=== PATIENT | male | born 1970 | race Caucasian/White ===

== ENCOUNTER 2022-09-16 08:38 | Emergency (ER) | payer OTHER, MEDICAID, SELFPAY ==
[2022-09-16 08:53] VITALS: O2SAT 97
--- NOTE | 2022-09-16 08:53 | ED.FALL ---
HPI - Fall General Chief Complaint: Fall Stated Complaint: poss broken ribs/hip & neck hurt RT side Time Seen by Provider: 09/16/22 08:48 Source: patient and RN notes reviewed Mode of arrival: Ambulatory Limitations: no limitations History of Present Illness HPI Narrative: This is a 51 year old male with history of osteoarthritis and chronic pain on oxycodone daily. Patient states this morning he was with his girlfriend who has seizure disorder. He states that she is started have seizure activity and fell he caught her and they fell together with her landing on top of him and sort of on his right hip and chest. Patient states she was about 130 lb. They landed on [place]. He states that he is had right hip, right rib pain and some lateral neck pain since then. He denies any loss of consciousness. He thinks he did hit his head but describes it as not being very hard. Patient has been ambulating and brought himself. Patient states no bruising or skin changes he appreciates. He states he did break his ribs on the right side several years ago they have since healed and a similar scenario but has increased pain today. He states he has chronic joint pain in his right hip normally as well as his chest and shoulders that he has daily but is worse after his fall. He denies any shortness of breath, no nausea or vomiting, no dizziness or lightheadedness, no other GI or urinary symptoms. No new numbness, tingling or weakness. Patient states oxycodone is his only daily medication. Related Data Allergies Allergy/AdvReac Type Severity Reaction Status Date / Time acetaminophen [From Tylenol] Allergy Unknown Rash Verified 09/16/22 09:42 codeine Allergy Unknown ITCHING Verified 09/16/22 09:42 Iodinated Contrast Media Allergy Unknown Verified 09/16/22 09:42 iodine Allergy Unknown Verified 09/16/22 09:42 NSAIDS (Non-Steroidal AdvReac Gastrointestinal Verified 09/16/22 09:42 Anti-Inflamma Upset SSRIS AdvReac Unknown Uncoded 09/16/22 09:42 Review of Systems Review of Systems ROS Unobtainable: All systems reviewed & are unremarkable except as noted in HPI and below Patient History Social History Smoking Status: Former smoker Exam Narrative Exam Narrative: GEN: Thin male in mild distress. HEAD: No evidence of trauma, no raccoon/Mackenzie sign. NECK: Nontender, painless range of motion, trachea midline Negative Nexus criteria, there is no midline line tenderness, distracting injury, altered mental status, neuro deficit, recent EtOH. EYES: PERRLA, EOMI ENT: External inspection normal, trachea is midline, TM's are normal no hemotypanum, Nares are clear, no septal hematoma, no dental or oral injury, airway is normal and with normal occlusion, No bony tenderness RESP: Chest is has mild right sided tenderness and has symmetric movement, no ecchymosis, breath sounds are normal no crackles, wheezes or rales, no ecchymosis, no swelling or erythema appreciated. CVS: Heart sounds are normal, no murmur noted, No JVD. ABG/GI: Nontender, soft, normal bowel sounds, no distention, no organomegaly, pelvic rock is negative NEURO: Oriented AOx3, neuro is grossly intact, sensation and motor is normal all 4 extremities moving, cranial nerves II through XII are intact, GCS is 15 PSYCH: Normal mood and affect SKIN: Intact, warm and dry, no crepitus and without decubitus BACK: No CVA tenderness, no vertebral tenderness, no step-off's, no crepitus EXT: Atraumatic, patient has mild pain over the right hip. He has full range of motion, he is able to go from lying to seated and standing back to show me his injuries without issue, no pedal edema, normal color and temperature, normal range of motion of extremities with normal tendon exam, 2+ pulses in all four extremities Initial Vital Signs Initial Vital Signs: Vital Signs Pulse Oximetry 97 09/16/22 08:53 Course Orders Ordered: ED Orders 09/16/22 09:16 XR hip w pel if done RT 2V Stat XR ribs RT min 3V w CXR1V Stat Vital Signs Vital signs: Vital Signs - 8 hr 09/16/22 09:00 09/16/22 08:53 09/16/22 08:54 Temperature 98.3 F Pulse Rate Respiratory Rate 13 Blood Pressure 105/53 L Pulse Oximetry 97 09/16/22 08:54 Temperature Pulse Rate 77 Respiratory Rate Blood Pressure Pulse Oximetry 97 MDM - Fall Imaging Data Extremity x-ray #1: Radiologist's Impression: [address] [address] XRay Report Signed Patient: Adebayo Hurtado I MR#: [id number] : 1970 Acct:[id number] Age/Sex: 51 / M Date of Service: 09/16/22 Loc: ED Accession Number: [id number] ?? Procedure: XR hip w pel if done RT 2V Ordering Provider: Theresa Holman D.O. PROCEDURE:? XR HIP W PEL IF DONE RT 2V ? INDICATIONS:? right hip pain, fall this am. weight bearing ? TECHNIQUE:? To views of the hip were acquired.? ? COMPARISON:? [facility], , HIP 2V RIGHT, 10/20/2006, 13:17. ? FINDINGS:? ? Bones:? No fractures or dislocations.? No suspicious bony lesions.? The visualized pelvic ring appears intact.? ? Soft tissues:? No suspicious soft tissue calcifications or masses.? ? IMPRESSION:? No displaced fracture.? If there remains a high clinical concern or the patient cannot bear weight, consider cross-sectional imaging to exclude an occult fracture. ? ? Dictated by: Laureano Dominique M.D. on 09/16/2022 at 9:53 ? ? Approved by: Laureano Dominique M.D. on 09/16/2022 at 9:53?? Chest x-ray: Radiologist's Impression: [address] [address] XRay Report Signed Patient: Adebayo Hurtado I MR#: [id number] : 1970 Acct:[id number] Age/Sex: 51 / M Date of Service: 09/16/22 Loc: ED Accession Number: [id number] ?? Procedure: XR ribs RT min 3V w CXR1V Ordering Provider: Theresa Holman D.O. PROCEDURE:? XR RIBS RT MIN 3V W CXR 1V ? INDICATIONS:? right rib pain, fall this am. weight bearing ? TECHNIQUE:? 3 views of the right ribs were acquired, along with a single view chest.? ? COMPARISON:? None. ? FINDINGS:? ? Surgical changes and devices:? None.? ? Bones and chest wall:? There is a rib fracture deformity of the posterior 7th rib.? However, there appears to be some bone remodeling of the site. ? Lungs and pleura:? No pleural effusions or pneumothorax.? Lungs appear clear.? ? Mediastinum:? Mediastinal contours appear normal.? Heart size is normal.? ? IMPRESSION:? Age indeterminate right posterior 7th rib fracture. ? ? Dictated by: Laureano Dominique M.D. on 09/16/2022 at 9:54 ? ? Approved by: Laureano Dominique M.D. on 09/16/2022 at 9:56?? MDM Narrative Medical decision making narrative: This is a 51-year-old male who presents with right-sided rib and hip pain. Patient had ground level fall while catching another individual who landed on him and on right side without any significant bony tenderness on examination. Patient has what appears to be likely an old right rib fracture and he also notes he is had prior rib fractures on the right. Patient does not have any other bony injuries, he takes oxycodone daily he states he is multiple allergies to pain medications and can not take other medications. Return precautions. Discharge Plan Departure Patient Disposition: Home Clinical Impression: Rib pain on right side, Hip pain, right Closed rib fracture Qualifiers: Rib fracture type: single rib Laterality: right Instructions: DI for Rib Contusion Activity Restrictions/Additional Instructions: Your imaging today shows a 7th right rib fracture that appears to be older, there are no other breaks or fractures on your imaging noted. Continue your home medication as prescribed. You can use warm heat, hot compresses or hot showers as needed. Please return for rapidly worsening symptoms, shortness of breath, passing out, inability to ambulate or weightbear, or other new or concerning changes Referrals: Tyree Moss DO [Non-Staff] - Aramis Hurtado DO [Primary Care Provider] - Stand Alone Forms: Patient Portal/API
[2022-09-16 08:54] VITALS: BP 105/53; PULSE 77; O2SAT 97
[2022-09-16 09:00] VITALS: RESP 13; TEMP 36.8
--- NOTE | 2022-09-16 09:16 | DI.RAD.S_ITS ---
PROCEDURE: XR RIBS RT MIN 3V W CXR 1V INDICATIONS: right rib pain, fall this am. weight bearing TECHNIQUE: 3 views of the right ribs were acquired, along with a single view chest. COMPARISON: None. FINDINGS: Surgical changes and devices: None. Bones and chest wall: There is a rib fracture deformity of the posterior 7th rib. However, there appears to be some bone remodeling of the site. Lungs and pleura: No pleural effusions or pneumothorax. Lungs appear clear. Mediastinum: Mediastinal contours appear normal. Heart size is normal. IMPRESSION: Age indeterminate right posterior 7th rib fracture. Dictated by: Laureano Dominique M.D. on 09/16/2022 at 9:54 Approved by: Laureano Dominique M.D. on 09/16/2022 at 9:56
--- NOTE | 2022-09-16 09:16 | DI.RAD.S_ITS ---
PROCEDURE: XR HIP W PEL IF DONE RT 2V INDICATIONS: right hip pain, fall this am. weight bearing TECHNIQUE: To views of the hip were acquired. COMPARISON: [facility], , HIP 2V RIGHT, 10/20/2006, 13:17. FINDINGS: Bones: No fractures or dislocations. No suspicious bony lesions. The visualized pelvic ring appears intact. Soft tissues: No suspicious soft tissue calcifications or masses. IMPRESSION: No displaced fracture. If there remains a high clinical concern or the patient cannot bear weight, consider cross-sectional imaging to exclude an occult fracture. Dictated by: Laureano Dominique M.D. on 09/16/2022 at 9:53 Approved by: Laureano Dominique M.D. on 09/16/2022 at 9:53
[2022-09-16 09:17] VITALS: BMI 17.2
[2022-09-16 10:17] VITALS: PULSE 72; RESP 14; O2SAT 99
== END 2022-09-16 10:18 | disposition home or self-care (01) ==
PROVIDERS: Emergency Provider Emergency Medicine; PCP Student in an Organized Health Care Education/Training Program
DX: S22.31XA Fracture of one rib, right side, initial encounter for closed fracture (principal); M25.551 Pain in right hip; M54.2 Cervicalgia; R07.81 Pleurodynia; W03.XXXA Other fall on same level due to collision with another person, initial encounter
CPT/HCPCS: 71101; 73502; 99283

== ENCOUNTER 2023-10-26 06:38 | Emergency (ER) | payer OTHER, MEDICAID, SELFPAY ==
[2023-10-26 06:50] VITALS: BP 120/71; PULSE 76; RESP 16; TEMP 36.9; O2SAT 97; BMI 17.9
--- NOTE | 2023-10-26 06:57 | ED.URI ---
HPI - URI/Sore Throat General Chief Complaint: Upper Respiratory Symptoms Stated Complaint: t-7, covid symptoms per pt Time Seen by Provider: 10/26/23 06:50 History of Present Illness HPI Narrative: Patient 52-year-old male history of anemia takes iron supplements presenting today with cough and sore throat. He reports that he gets some mild shortness of breath with exertion no chest pain. He feels like he has had fever chills. It has been ongoing for about a week. But last night and this morning his throat really hurt. No abdominal pain no bloody stools. He does complain of a slight headache as well no neck pain. Related Data Previous Rx's Medication Instructions Recorded albuterol sulfate 90 mcg/actuation 2 puff inhalation Q4-6H PRN 10/26/23 aerosol inhaler shortness of breath or wheezing #8.5 grams Allergies Allergy/AdvReac Type Severity Reaction Status Date / Time acetaminophen [From Tylenol] Allergy Unknown Rash Verified 10/26/23 07:07 codeine Allergy Unknown ITCHING Verified 10/26/23 07:07 Iodinated Contrast Media Allergy Unknown Verified 10/26/23 07:07 iodine Allergy Unknown Verified 10/26/23 07:07 NSAIDS (Non-Steroidal AdvReac Gastrointestinal Verified 10/26/23 07:07 Anti-Inflamma Upset SSRIS AdvReac Unknown Uncoded 10/26/23 07:07 Patient History Social History Smoking Status: Former smoker Smoking Status: Former smoker tobacco type: cigarettes alcohol intake frequency: 0-2 drinks per day Substance Use Type: does not use Exam Initial Vital Signs Initial Vital Signs: Vital Signs Temperature 98.5 F 10/26/23 06:50 Pulse Rate 76 10/26/23 06:50 Respiratory Rate 16 10/26/23 06:50 Blood Pressure 120/71 10/26/23 06:50 Pulse Oximetry 97 10/26/23 06:50 Oxygen Delivery Method Room Air 10/26/23 06:50 GENERAL: Alert well-appearing 52-year-old male HEENT: Head atraumatic,EOMI, pupils reactive, face symmetric, moist mucous membranes PHARYNX: Mild erythema no tonsillar exudate no cervical lymphadenopathy no uvula swelling or deviation CARDIOVASCULAR: Regular rate and rhythm without murmurs, rubs or gallops. RESPIRATORY: Breath sounds equal bilaterally, no wheezes rales or rhonchi. EXTREMITIES: Normal range of motion, no clubbing or edema. Neurovascularly intact NEUROLOGICAL: Alert and oriented x4. SKIN: Warm, dry, no laceration, no petechiae, no rashes or lesions. Course Orders Ordered: ED Orders 10/26/23 06:57 Chest [XR chest 2V] Stat Covid-19 + FLU A/B + RSV - PCR Stat 10/26/23 07:02 Strep Grp A by PCR Rapid Stat 10/26/23 08:02 Throat Culture Stat Vital Signs Vital signs: Vital Signs - 8 hr 10/26/23 06:50 10/26/23 07:14 10/26/23 07:30 Temperature 98.5 F Pulse Rate 76 66 63 Respiratory Rate 16 Blood Pressure 120/71 Pulse Oximetry 97 96 97 Oxygen Delivery Method Room Air MDM - URI/Sore Throat Lab Data Labs: Lab Results 10/26/23 10/26/23 Range/Units 07:15 07:18 SARS-CoV-2 (PCR) Negative (Negative) Influenza A (RT-PCR) Flu a negative (NEGATIVE) Influenza B (RT-PCR) Flu b negative (NEGATIVE) RSV (PCR) Negative (Negative) Group A Strep (PCR) Negative (Negative) Imaging Data Chest x-ray: Radiologist's Impression: PROCEDURE: XR CHEST 2V INDICATIONS: cough TECHNIQUE: 2 views of the chest were acquired. COMPARISON: None. FINDINGS: Surgical changes and devices: None. Lungs and pleura: Lungs are clear. No pleural effusions or pneumothorax. Mediastinum: Mediastinal contours are normal. Heart size is normal. Bones and chest wall: No suspicious bony abnormalities. Soft tissues appear unremarkable. IMPRESSION: No acute cardiopulmonary pathology. Dictated by: Joshua Choe M.D. on 10/26/2023 at 7:50 MDM Narrative Medical decision making narrative: Healthy 52-year-old male presents today with upper respiratory like symptoms sore throat cough body aches. He overall appears well nontoxic vitals are stable. Viral panels negative strep is negative chest x-ray has been reviewed and does not show any evidence pneumonia. At this time supportive care only. Discharge Plan Departure Patient Disposition: Home Clinical Impression: Upper respiratory infection Instructions: DI for Viral Upper Respiratory Infection -- Adult Activity Restrictions/Additional Instructions: *You have been diagnosed with upper respiratory infection *What to do: At this time viral panel is negative your strep is negative chest x-ray does not show need for antibiotics. Please stay hydrated with supportive care only. *Continue to take medications as directed Albuterol 1-2 puffs for coughing with spacer as needed Mucinex twice daily as directed [id number] *Follow up with your primary care provider in 2-3 days or call [phone] *Return to ER if you should have increasing shortness of breath increased confusion [or] any new, worsening or concerning symptoms Prescriptions: New albuterol sulfate 90 mcg/actuation HFA aerosol inhaler 2 puff INHALATION Q4-6H PRN (Reason: shortness of breath or wheezing) Qty: 8.5 0RF Referrals: Aramis Hurtado DO [Primary Care Provider] - Stand Alone Forms: Patient Portal/API
[2023-10-26 07:14] VITALS: PULSE 66; O2SAT 96
[2023-10-26 07:30] VITALS: PULSE 63; O2SAT 97
[2023-10-26 07:31] LABS: Strep Grp A by PCR Rapid Negative (Negative)
[2023-10-26 08:00] VITALS: PULSE 57; O2SAT 98
[2023-10-26 08:01] LABS: COVID-19 CEPHEID 4-PLEX PCR Negative (Negative); Influenza A - CEPHEID Flu A NEGATIVE (NEGATIVE); Influenza B - CEPHEID Flu B NEGATIVE (NEGATIVE); Respiratory Syncytial Virus Negative (Negative)
[2023-10-26 08:13] VITALS: BP 110/69; PULSE 63; O2SAT 99
== END 2023-10-26 08:42 | disposition home or self-care (01) ==
PROVIDERS: Emergency Provider Emergency Medicine; PCP Student in an Organized Health Care Education/Training Program
DX: J02.0 Streptococcal pharyngitis (principal); Z20.822 Contact with and (suspected) exposure to COVID-19
CPT/HCPCS: 0241U; 71046; 87070; 87147; 87651; 99282